=== PATIENT | female | born 1995 | race Hispanic/Latino ===

== ENCOUNTER 2021-02-22 19:07 | Emergency (ER) | payer SELFPAY ==
[2021-02-22] MEDS ORDERED: Acetaminophen 500 MG TAB ONE (19:48)
[2021-02-22] MEDS ORDERED: Dexamethasone 10 MG/ML VIAL ONE (19:48)
[2021-02-23 17:52] LABS: SARS-CoV-2 PCR by NAA Not Detected (NotDetected)
== END 2021-02-22 20:00 | disposition home or self-care (01) ==
LOC: CSHERS 19:07
DX: U07.1 COVID-19 (principal)
CPT/HCPCS: 87635; 87804; 99283; J1100; U0003; U0005